=== PATIENT | female | born 1985 | race Caucasian/White ===

== ENCOUNTER 2019-04-07 14:28 | Day surgery (SDC) | payer OTHER ==
[2019-04-07] VITALS (14 sets, daily range): BP systolic 101–133; BP diastolic 62–89; PULSE 66–90; RESP 12–30; Ht 154.9 cm; Wt 97.6 kg
[~2019-04-07] VITALS: Ht 154.9 cm; Wt 97.6 kg
--- NOTE | 2019-04-07 16:05 | PREAC ---
Date/Time of Note Date/Time of Note DATE: 04/07/19 TIME: 16:04 Anesthesia Eval and Record Evaluation Time Pre-Procedure Interview DATE: 04/07/19 TIME: 16:04 Age 34 Sex female NPO: 8 hrs Preoperative diagnosis tonsils hypertrophy Planned procedure tonsilectomy Past Medical History Past Medical History: Includes GI: Obesity Surgery & Anesthesia Issues No known issue Meds Anticoagulation: No Beta Yuri within 24 hr: No Reason Beta Yuri not given: Pt. not on B-Yuri Meds reviewed: Yes Allergies Coded Allergies: No Known Allergy (Unverified , 04/07/19) Allergies Reviewed: Yes Labs/Studies Labs Reviewed: Reviewed by anesthesiologist test: Negative Studies: ECG (n/a), CXR (n/a) Pre-procedure Exam Last vitals Vital Signs Date Temp Pulse Resp B/P (MAP) Pulse Ox O2 O2 Flow FiO2 Time Delivery Rate 04/07/19 98.0 90 16 124/72 98 Room Air 15:38 (89) Airway: Adequate mouth opening Mallampati: Mallampati I Teeth: Normal Lung: Normal Heart: Normal ASA Physical Status ASA physical status: 1 Emergency: None Planned Anesthetic General/MAC: ETT Planned Pain Management Parenteral pain med Pre-operative Attestations Prior to commencing anesthesia and surgery, the patient was re-evaluated, there was verification of: *The patient's identity *The results of appropriate recent lab work and preoperative vital signs *The above evaluation not changing prior to induction *Anesthetic plan, risk benefits, alternative and complications discussed with patient/family; questions answered; patient/family understands, accepts and wishes to proceed. KYRA GARCES MD Apr 07, 2019 16:05
[2019-04-07] MEDS ORDERED: OXYCODONE/ACETAMINOPHEN (5/325) TAB PO PRN (16:30)
[2019-04-07] MEDS ORDERED: FENTAnyl 50 MCG/ML VIAL IV PRN ×2 (16:30)
[2019-04-07] MEDS ORDERED: ONDANSETRON 4 MG INJ IV PRN (16:30)
[2019-04-07] MEDS ORDERED: LIDOCAINE 2% (SDV) 5 ML INJ ONE (17:00)
[2019-04-07] MEDS ORDERED: ROCURONIUM 50 MG INJ ONE (17:00)
[2019-04-07] MEDS ORDERED: PROPOFOL 200 MG INJ ONE (17:00)
[2019-04-07] MEDS ORDERED: FENTAnyl 50 MCG/ML VIAL ONE (17:05)
[2019-04-07] MEDS ORDERED: CEFAZOLIN 1 GM INJ ONE (17:10)
[2019-04-07] MEDS ORDERED: DEXAMETHASONE 4 MG/ML 5 ML INJ ONE (17:10)
[2019-04-07] MEDS ORDERED: ONDANSETRON 4 MG INJ ONE (17:10)
[2019-04-07] MEDS ORDERED: LABETALOL HCL 20MG INJ ONE (17:12)
[2019-04-07] MEDS ORDERED: MIDAZOLAM 1 MG/ML 2 ML INJ ONE (17:15)
[2019-04-07] MEDS ORDERED: HYDROCODONE/APAP (5/325) TAB PO PRN (17:30)
--- NOTE | 2019-04-07 17:31 | HPN ---
Date/Time of Note Date/Time of Note DATE: 04/07/19 TIME: 17:31 Interval H&P Admission Note Pt. seen H&P reviewed: No system changes TONY OSORIO MD Apr 07, 2019 17:31
--- NOTE | 2019-04-07 17:32 | OPR ---
Date/Time of Note Date/Time of Note DATE: 04/07/19 TIME: 17:31 Operative Report Procedure Date: Apr 07, 2019 Preoperative Diagnosis Chronic and recurrent tonsillitis Postoperative Diagnosis Same Operation/Procedure Performed Tonsillectomy Surgeon see signature line [employer] Officer None Anesthesia Type: general Estimated Blood Loss: 0 - 10 ml's Transfusion none Specimen Tonsils Grafts/Implants none Complications none Pt Condition Post Procedure: stable Disposition: PACU Indications Chronic infections Procedure Description Description of procedure: The patient was identified in the holding area. We had a discussion to confirm understanding of all indications risks benefits alternatives and postoperative care associated with the operation. The patient s igned informed consent was taken to the operating room. The patient was laid supine on the operating room table and general anesthesia was achieved without difficulty. The face was draped in sterile fashion. A McIvor mouth gag was placed and used to retract the oral cavity open, taking care to avoid damage to the teeth. The oral cavity and pharynx were inspected and palpated to reveal symmetry. At this point the right palatine tonsil was grabbed superiorly with a curved Monica clamp. It was retracted medially and monopolar cautery was used to enter the peritonsillar space. Dissection of the tonsil commenced in a superior to i nferior fashion until it was completely resected. Suction Bovie cautery was used for spot hemostasis. At this point, the contralateral tonsil was removed in the exact similar fashion. There was no significant bleeding or oozing. Copious irrigation and suctioning was performed. Secondary inspection revealed no bleeding or oozing. The patient was awakened, extubated and taken to the PACU in stable condition. Complications: None TONY OSORIO MD Apr 07, 2019 17:32
[2019-04-07] MEDS ORDERED: SUGAMMADEX SODIUM 200 MG/2 ML VIAL IV ONE (17:33)
[2019-04-07] MEDS: FENTAnyl 50 MCG/ML VIAL IV PRN ×2 (18:03→18:15)
== END 2019-04-07 18:55 | disposition home or self-care (01) ==
LOC: SDS 14:28
PROVIDERS: ATTEND Otolaryngology
DX: J35.01 Chronic tonsillitis (principal); E66.01 Morbid (severe) obesity due to excess calories; Z68.41 Body mass index [BMI] 40.0-44.9, adult
CPT/HCPCS: 42826; 88302; J0690; J1100; J2250; J2405; J3010